=== PATIENT | male | born 1995 | race Caucasian/White ===

== ENCOUNTER 2025-01-07 19:56 | Emergency (ER) | payer MEDICAID, OTHER ==
[~2025-01-07] VITALS: Ht 162.6 cm; Wt 102.2 kg
[2025-01-07 20:09] VITALS: TEMP 36.9; O2SAT 98
[2025-01-07] MEDS: IBUPROFEN 600MG TABLET PO ONE (21:52)
[2025-01-07] MEDS ORDERED: IBUP-1455 MT (22:55)
[2025-01-07 23:40] VITALS: BP 128/64; PULSE 61; RESP 20; O2SAT 99
== END 2025-01-07 23:46 | disposition home or self-care (01) ==
LOC: ER 19:56
DX: S92.352A Displaced fracture of fifth metatarsal bone, left foot, initial encounter for closed fracture (principal); Z79.899 Other long term (current) drug therapy; X50.1XXA Overexertion from prolonged static or awkward postures, initial encounter; Y93.89 Activity, other specified; Y92.89 Other specified places as the place of occurrence of the external cause; Y99.8 Other external cause status
CPT/HCPCS: 99284; 29515; 73610; 73630; A6449